=== PATIENT | male | born 1965 | race African-American/Black ===

== ENCOUNTER 2017-10-04 15:41 | Emergency (ER) | payer MEDICAID ==
[~2017-10-04] VITALS: Ht 172.7 cm; Wt 108.0 kg
[2017-10-05] MEDS ORDERED: ACETAMINOPHEN 500MG TABLET PO ONE (00:15)
[2017-10-05 11:54] VITALS: BP 118/62
== END 2017-10-05 12:02 | disposition home or self-care (01) ==
LOC: ER 15:52
DX: M79.642 Pain in left hand (principal); F12.10 Cannabis abuse, uncomplicated; F17.200 Nicotine dependence, unspecified, uncomplicated; Z59.0 Homelessness
CPT/HCPCS: 99283

== ENCOUNTER 2018-01-01 10:09 | Emergency (ER) | payer MEDICAID ==
[~2018-01-01] VITALS: Ht 185.4 cm; Wt 86.0 kg
[2018-01-01 10:11] VITALS: BP 141/60
== END 2018-01-01 13:22 | disposition home or self-care (01) ==
LOC: ER 10:09
DX: M79.672 Pain in left foot (principal); M79.671 Pain in right foot; R03.0 Elevated blood-pressure reading, without diagnosis of hypertension; F17.200 Nicotine dependence, unspecified, uncomplicated; F12.10 Cannabis abuse, uncomplicated; F14.10 Cocaine abuse, uncomplicated; Z59.0 Homelessness
CPT/HCPCS: 99283

== ENCOUNTER 2018-11-04 10:41 | Emergency (ER) | payer MEDICAID ==
[~2018-11-04] VITALS: Ht 185.4 cm; Wt 100.0 kg
[2018-11-04 11:10] VITALS: BP 139/87
== END 2018-11-04 11:34 | disposition home or self-care (01) ==
LOC: ER 10:41
DX: Z04.89 Encounter for examination and observation for other specified reasons (principal); F17.210 Nicotine dependence, cigarettes, uncomplicated; F14.10 Cocaine abuse, uncomplicated; F12.10 Cannabis abuse, uncomplicated; Z59.0 Homelessness
CPT/HCPCS: 99283

== ENCOUNTER 2019-06-30 18:53 | Emergency (ER) | payer MEDICAID | END 2019-06-30 21:03 | disposition left against medical advice (07) | LOC: ER 19:39 | DX: Z53.21 Procedure and treatment not carried out due to patient leaving prior to being seen by health care provider (principal) ==

== ENCOUNTER 2019-08-03 04:53 | Emergency (ER) | payer MEDICAID ==
[~2019-08-03] VITALS: Ht 175.3 cm; Wt 82.0 kg
[2019-08-03] MEDS ORDERED: IBUPROFEN 600MG TABLET PO ONE (06:30)
[2019-08-03 06:50] VITALS: BP 127/76
== END 2019-08-03 07:13 | disposition left against medical advice (07) ==
LOC: ER 05:07
DX: S90.01XA Contusion of right ankle, initial encounter (principal); Z59.0 Homelessness; F12.10 Cannabis abuse, uncomplicated; F14.10 Cocaine abuse, uncomplicated; X58.XXXA Exposure to other specified factors, initial encounter; Y93.01 Activity, walking, marching and hiking; Y92.89 Other specified places as the place of occurrence of the external cause; Y99.8 Other external cause status
CPT/HCPCS: 99283

== ENCOUNTER 2019-08-19 04:56 | Emergency (ER) | payer MEDICAID ==
[~2019-08-19] VITALS: Ht 172.7 cm; Wt 82.0 kg
[2019-08-19] MEDS ORDERED: ACETAMINOPHEN 325MG TABLET PO ONE (06:15)
[2019-08-19 13:05] VITALS: BP 121/68
== END 2019-08-19 13:10 | disposition home or self-care (01) ==
LOC: ER 04:56
DX: M79.672 Pain in left foot (principal); M79.671 Pain in right foot; F14.10 Cocaine abuse, uncomplicated; F12.90 Cannabis use, unspecified, uncomplicated; Z59.0 Homelessness
CPT/HCPCS: 99282; 99283

== ENCOUNTER 2019-09-06 13:30 | Emergency (ER) | payer MEDICAID ==
[~2019-09-06] VITALS: Ht 172.7 cm; Wt 75.0 kg
[2019-09-06] MEDS ORDERED: ACETAMINOPHEN 325MG TABLET PO ONE (15:45)
[2019-09-06 17:42] LABS: CLARITY URINE CLEAR (CLEAR); COLOR URINE DARK YELLOW (YELLOW); KETONES URINE TRACE (NEGATIVE); LEUKOCYTE ESTERASE URINE NEGATIVE (NEGATIVE); NITRITE URINE NEGATIVE (NEGATIVE); OCCULT BLOOD URINE NEGATIVE (NEGATIVE); PH URINE 5.5 (4.5-8.0); PROTEIN URINE NEGATIVE (NEGATIVE); SPECIFIC GRAVITY URINE 1.034 (1.005-1.030)
[2019-09-06 18:10] LABS: *AMPHETAMINES SCREEN URINE NEGATIVE (NEGATIVE); *BARBITURATES SCREEN URINE NEGATIVE (NEGATIVE); CANNABINOID URINE SCREEN PRESUMTIVE POSITIVE (NEGATIVE); METHADONE URINE SCREEN NEGATIVE (NEGATIVE); OPIATES URINE SCREEN NEGATIVE (NEGATIVE); PHENCYCLIDINE URINE SCREEN NEGATIVE (NEGATIVE)
[2019-09-06 18:11] LABS: *BENZODIAZEPINES SCREEN URINE NEGATIVE (NEGATIVE); *COCAINE SCREEN URINE PRESUMTIVE POSITIVE (NEGATIVE)
[2019-09-07 09:29] VITALS: BP 123/76
== END 2019-09-07 09:33 | disposition home or self-care (01) ==
LOC: ER 13:30
DX: S20.212A Contusion of left front wall of thorax, initial encounter (principal); Y08.89XA Assault by other specified means, initial encounter; Y93.89 Activity, other specified; Y92.89 Other specified places as the place of occurrence of the external cause; Y99.8 Other external cause status; F14.10 Cocaine abuse, uncomplicated; Z59.0 Homelessness; F12.10 Cannabis abuse, uncomplicated
CPT/HCPCS: 71045; 80305; 81003; 93005; 99285

== ENCOUNTER 2019-10-23 05:42 | Emergency (ER) | payer MEDICAID ==
[~2019-10-23] VITALS: Ht 182.9 cm; Wt 84.0 kg
[2019-10-23 05:49] VITALS: BP 132/90
== END 2019-10-23 06:57 | disposition home or self-care (01) ==
LOC: ER 05:42
DX: Z04.89 Encounter for examination and observation for other specified reasons (principal); Z59.0 Homelessness
CPT/HCPCS: 99283

== ENCOUNTER 2020-06-19 12:40 | Emergency (ER) | payer MEDICAID ==
[~2020-06-19] VITALS: Ht 177.8 cm; Wt 82.0 kg
[2020-06-19] MEDS ORDERED: IBUP-2030 MT (15:16)
[2020-06-19 15:44] VITALS: BP 132/78
== END 2020-06-19 15:44 | disposition home or self-care (01) ==
LOC: ER 12:40
DX: S80.11XA Contusion of right lower leg, initial encounter (principal); M25.571 Pain in right ankle and joints of right foot; M25.561 Pain in right knee; X58.XXXA Exposure to other specified factors, initial encounter; Y93.89 Activity, other specified; Y92.480 Sidewalk as the place of occurrence of the external cause; Z87.81 Personal history of (healed) traumatic fracture; Z09 Encounter for follow-up examination after completed treatment for conditions other than malignant neoplasm; Z96.9 Presence of functional implant, unspecified; R03.0 Elevated blood-pressure reading, without diagnosis of hypertension; Z99.3 Dependence on wheelchair
CPT/HCPCS: 73562; 73590; 73610; 73630; 93971; 99284

== ENCOUNTER 2021-05-29 07:45 | Emergency (ER) | payer MEDICAID ==
[~2021-05-29] VITALS: Ht 175.3 cm; Wt 81.0 kg
[~2021-05-29 07:45] MED LIST: IBUP-2030 MT
[2021-05-29] MEDS ORDERED: KETOROLAC 60MG/2ML VIAL IM ONE (09:00)
[2021-05-29] MEDS ORDERED: IBUP-2029 MT (10:20)
[2021-05-29] MEDS ORDERED: ACET650T37 MT (10:20)
[2021-05-29 10:52] VITALS: BP 157/96
== END 2021-05-29 10:54 | disposition home or self-care (01) ==
LOC: ER 07:45
DX: S52.501A Unspecified fracture of the lower end of right radius, initial encounter for closed fracture (principal); W18.30XA Fall on same level, unspecified, initial encounter; Y93.89 Activity, other specified; Y92.89 Other specified places as the place of occurrence of the external cause; Y99.8 Other external cause status
CPT/HCPCS: 29125; 73110; 96372; 99283; J1885

== ENCOUNTER 2021-07-09 19:16 | Emergency (ER) | payer MEDICAID ==
[~2021-07-09] VITALS: Ht 177.8 cm; Wt 82.0 kg
[~2021-07-09 19:16] MED LIST changes: +ACET650T37 MT; +IBUP-2029 MT
[2021-07-09] MEDS ORDERED: KETOROLAC 60MG/2ML VIAL IM ONE (19:45)
[2021-07-09 20:05] VITALS: BP 156/100
[2021-07-10] MEDS ORDERED: IBUP-2030 MT ×2 (13:03→13:04)
== END 2021-07-09 20:50 | disposition home or self-care (01) ==
LOC: ER 19:16
DX: S49.81XA Other specified injuries of right shoulder and upper arm, initial encounter (principal); X58.XXXA Exposure to other specified factors, initial encounter; Y93.89 Activity, other specified; Y92.89 Other specified places as the place of occurrence of the external cause; M19.011 Primary osteoarthritis, right shoulder
CPT/HCPCS: 29105; 73030; 96372; 99283; J1885; A4565

== ENCOUNTER 2021-07-10 10:48 | Emergency (ER) | payer MEDICAID ==
[~2021-07-10] VITALS: Ht 177.8 cm; Wt 90.0 kg
[2021-07-10] MEDS ORDERED: KETOROLAC 60MG/2ML VIAL IM ONE (12:15)
[2021-07-10] MEDS ORDERED: IBUP-2030 MT ×2 (13:03→13:04)
[2021-07-10 13:12] VITALS: BP 152/74
[2021-07-11] MEDS ORDERED: DICL100G27 TP (14:29)
[2021-07-11] MEDS ORDERED: IBUP-2030 PO (14:29)
== END 2021-07-10 13:27 | disposition home or self-care (01) ==
LOC: ER 10:48
DX: M75.21 Bicipital tendinitis, right shoulder (principal)
CPT/HCPCS: 96372; 99283; J1885

== ENCOUNTER 2021-07-11 11:36 | Emergency (ER) | payer MEDICAID ==
[~2021-07-11] VITALS: Ht 172.7 cm; Wt 82.0 kg
[2021-07-11] MEDS ORDERED: KETOROLAC 60MG/2ML VIAL IM STA (14:03)
[2021-07-11 14:16] VITALS: BP 180/108
[2021-07-11] MEDS ORDERED: DICL100G27 TP (14:29)
[2021-07-11] MEDS ORDERED: IBUP-2030 PO (14:29)
== END 2021-07-11 14:40 | disposition home or self-care (01) ==
LOC: ER 11:36
DX: M25.511 Pain in right shoulder (principal); M77.8 Other enthesopathies, not elsewhere classified
CPT/HCPCS: 96372; 99283; J1885